=== PATIENT | female | born 1940 | race Caucasian/White ===

== ENCOUNTER 2023-07-02 13:09 | Emergency (ER) | payer OTHER ==
[~2023-07-02] VITALS: Ht 167.6 cm; Wt 59.2 kg
[2023-07-02 14:00] VITALS: BP 104/71; RESP 18; O2SAT 92
[2023-07-02 14:57] LABS: Basophils # (auto) 0 10 ^3/uL (0-0.2); Basophils % (auto) 0.2 % (0.0-2.0); Eosinophils # (auto) 0 10 ^3/uL (0-0.8); Lymphocytes # (auto) 0.9 10 ^3/uL (0.4-5.4); Mean Corpuscular Hemoglobin 36.7 pg (28.0-32.0); Mean Corpuscular Hgb Conc. 33.1 g/dL (32.0-36.0); Monocytes # (auto) 1.3 10 ^3/uL (0-1.3); Neutrophils # (auto) 10.6 10 ^3/uL (1.6-8.6)
[2023-07-02 14:58] LABS: Hematocrit 36.6 % (36.0-46.0); Hemoglobin 12.1 g/dL (12.2-16.2); Lymphocytes % (auto) 7.1 % (10.0-50.0); Monocytes % (auto) 10.4 % (0.0-12.0); Neutrophils % (auto) 82.3 % (37.0-80.0); Red Cell Distribution Width 14.9 % (11.8-14.3); White Blood Cell 12.9 10^3/uL (4.4-10.8)
[2023-07-02 15:14] LABS: Alanine Aminotransferase 25 U/L (7-40); Alkaline Phosphatase 210 U/L (46-116); Anion Gap 17 (5-15); Aspartate Aminotransferase 41 U/L (13-40); BUN/Creatinine Ratio 23.3 (10.0-20.0); Bilirubin, Total 0.9 mg/dL (0.2-1.0); Blood Urea Nitrogen 51 mg/dL (9-23); Calcium 8.7 mg/dL (8.7-10.4); Carbon Dioxide 16 mmol/L (20-30); Chloride 99 mmol/L (98-107); Glucose 135 mg/dL (74-106); Potassium 3.2 mmol/L (3.5-5.1); Sodium 132 mmol/L (136-145); Total Protein 7.3 g/dL (5.7-8.2)
[2023-07-02 18:58] VITALS: PULSE 114
[2023-07-02] MEDS ORDERED: POTASSIUM CHL 20MEQ/100ML 100 ML IV ONE (21:00)
== END 2023-07-02 22:15 | disposition left against medical advice (07) ==
LOC: ER 13:09
DX: E87.6 Hypokalemia (principal); R53.1 Weakness; D72.829 Elevated white blood cell count, unspecified; E87.20 Acidosis, unspecified; R07.89 Other chest pain; I10 Essential (primary) hypertension; E78.5 Hyperlipidemia, unspecified; Z90.710 Acquired absence of both cervix and uterus
CPT/HCPCS: 36415; 71045; 80053; 82962; 83880; 84484; 85025; 93005

== ENCOUNTER 2023-07-18 08:18 | Emergency (ER) | payer OTHER ==
[~2023-07-18] VITALS: Ht 167.6 cm; Wt 58.2 kg
[~2023-07-18 08:18] MED LIST: HYDR25CA PO
[2023-07-18 09:02] VITALS: BP 151/62; PULSE 86; RESP 18; TEMP 98.6; O2SAT 96
[2023-07-18] MEDS ORDERED: LORA-1121 PO (09:08)
== END 2023-07-18 09:14 | disposition home or self-care (01) ==
LOC: ER 08:18
DX: F41.1 Generalized anxiety disorder (principal); Z90.710 Acquired absence of both cervix and uterus

== ENCOUNTER 2023-07-24 09:30 | Emergency (ER) | payer OTHER ==
[~2023-07-24] VITALS: Ht 167.6 cm; Wt 61.0 kg
[~2023-07-24 09:30] MED LIST changes: +LORA-1121 PO
[2023-07-24 10:43] LABS: Urine Epithelial Cast None Seen /hpf (<5)
[2023-07-24 11:13] LABS: Basophils # (auto) 0 10 ^3/uL (0-0.2); Eosinophils # (auto) 0.1 10 ^3/uL (0-0.8); Hemoglobin 10.9 g/dL (12.2-16.2); Lymphocytes # (auto) 0.5 10 ^3/uL (0.4-5.4); Mean Corpuscular Volume 107.5 fL (80.0-100.0); Monocytes # (auto) 0.2 10 ^3/uL (0-1.3)
[2023-07-24 11:16] LABS: Urine Bacteria FEW /hpf (None Seen); Urine Blood Negative /uL (Negative); Urine Clarity Clear (Clear); Urine Color Colorless (Yellow); Urine Hyaline Cast FEW /lpf (0 - 2); Urine Protein, UAD Negative (Negative); Urine Specific Gravity 1.012 (1.001-1.035); Urine Urobilinogen Normal (Negative); Urine WBC 39 /hpf (0 - 5); Urine pH 5.5 (5.0-8.0)
[2023-07-24 11:16] LABS: Eosinophils % (auto) 1.8 % (0.0-7.0); Hematocrit 32.6 % (36.0-46.0); Lymphocytes % (auto) 16.8 % (10.0-50.0); Mean Corpuscular Hemoglobin 36.1 pg (28.0-32.0); Mean Corpuscular Hgb Conc. 33.5 g/dL (32.0-36.0); Neutrophils # (auto) 2.1 10 ^3/uL (1.6-8.6); Neutrophils % (auto) 72.4 % (37.0-80.0); Red Blood Cells 3.03 10^6/uL (4.0-5.20); Red Cell Distribution Width 14.4 % (11.8-14.3)
[2023-07-24 11:30] LABS: Alanine Aminotransferase 10 U/L (7-40); Albumin 3.9 g/dL (3.2-4.8); Alkaline Phosphatase 57 U/L (46-116); Anion Gap 6 (5-15); Aspartate Aminotransferase 15 U/L (13-40); BUN/Creatinine Ratio 12.8 (10.0-20.0); Blood Urea Nitrogen 15 mg/dL (9-23); Calcium 8.8 mg/dL (8.7-10.4); Carbon Dioxide 24 mmol/L (20-30); Chloride 111 mmol/L (98-107); Glucose 96 mg/dL (74-106); Magnesium 1.9 mg/dL (1.6-2.6); Sodium 141 mmol/L (136-145)
[2023-07-24 11:31] LABS: Bilirubin, Total 0.4 mg/dL (0.2-1.0); Total Protein 7.2 g/dL (5.7-8.2)
[2023-07-24 13:29] LABS: Base Excess -3.6 mmol/L (-2.0-2.0)
[2023-07-24 17:02] VITALS: BP 155/88; PULSE 105; RESP 18; TEMP 98; O2SAT 97
[2023-07-24] MEDS ORDERED: CEPH500C PO (17:07)
== END 2023-07-24 17:12 | disposition home or self-care (01) ==
LOC: ER 09:30
DX: N39.0 Urinary tract infection, site not specified (principal); R06.00 Dyspnea, unspecified; T50.B95A Adverse effect of other viral vaccines, initial encounter; R07.89 Other chest pain; I10 Essential (primary) hypertension; E78.5 Hyperlipidemia, unspecified; Z90.710 Acquired absence of both cervix and uterus; Y92.89 Other specified places as the place of occurrence of the external cause
CPT/HCPCS: 36415; 36600; 71045; 80053; 81001; 82805; 83605; 83735; 83880; 84484; 85025; 85379; 87040; 93005

== ENCOUNTER 2025-04-06 11:22 | Inpatient (IN) | payer OTHER ==
[~2025-04-06] VITALS: Ht 162.6 cm; Wt 67.3 kg
[~2025-04-06 11:22] MED LIST changes: +CEPH500C PO
[2025-04-06 11:38] VITALS: PULSE 120; RESP 37; O2SAT 95
--- NOTE | 2025-04-06 12:03 | ECG ---
[facility] Test Date: 2025-04-06 Test Time: 11:46:43 Pat Name: ELAINE EID Department: ER Room: 0222 Gender: F Global Clinical Leader: ESHA : 1940 Requested By: MANAS BAUMAN Order Number: [id number] Reading MD: Milton Groves Measurements Intervals Floyd Rate: 120 P: 34 NV: 150 QRS: -49 QRSD: 78 T: 77 QT: 305 QTc: 431 Interpretive Statements Sinus tachycardia Left anterior fascicular block Lateral infarct, age indeterminate Electronically Signed On 04-10-2025 20:28:57 PDT by Milton Groves Please click the below link to view image of tracing.
[2025-04-06] MEDS: SODIUM CHLORIDE 0.9% 1,000 ML IV ONE (12:13)
--- NOTE | 2025-04-06 12:23 | ED.PDOC ---
History of Present Illness HPI Comments 85 year old female with PMHx anxiety, cancer, HLD, HTN presents to the ED with a chief complaint of generalized weakness onset 1 week. states patient has been experiencing generalized weakness, poor appetite, nausea, vomiting, fevers, chills, sweats for the past week. Prior to symptoms, patient had B12 vaccine, since then symptoms began. Denies chest pain, shortness of breath, dizziness, headache, abdominal pain, dysuria, hematuria. no other symptoms or modifying factors present at this time. Chief Complaint: General Weakness Time Seen by MD: 12:00 Primary Care Provider: BECCA Saba Notes: Medications, Allergies Allergies: Coded Allergies: NO KNOWN ALLERGIES (Unverified , 07/02/23) Home Meds Active Scripts Cephalexin Monohydrate (Cephalexin) 500 Mg Cap, 1 CAP PO TID for 5 Days, #15 CAP Prov:MONE BARLOW DO 07/24/23 Lorazepam (ATIVAN TABLET) 0.5 Mg Tb, 1 TAB PO BID PRN, #14 TAB Prov:IMTIAZ BARNES 07/18/23 Hydroxyzine Pamoate (Vistaril) 25 Mg Cap, 1 CAP PO BID PRN, #30 CAP Prov:IMTIAZ BARNES 07/13/23 Information Source: Patient, Spouse Mode of Arrival: Ambulatory Severity: Moderate Timing: Weeks Duration: Since onset Prehospital treatment: None Past Medical History PAST MEDICAL HISTORY: Anxiety, Cancer, High Lipids, HTN Surgical History: Hysterectomy 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 Family History Family History: Reviewed,noncontributory to illness Social History Smoker: Non-Smoker Alcohol: Occasionally Drugs: Denies Drug Use Lives In: Home Constitutional: reports: chills, fever, sweats, weakness; denies: diaphoresis, fatigue, malaise, others EENTM: denies: blurred vision, double vision, ear bleeding, ear discharge, ear drainage, ear pain, ear ringing, eye pain, eye redness, hearing loss, mouth pain, mouth swelling, nasal discharge, nose bleeding, nose congestion, nose pain, photophobia, tearing, throat pain, throat swelling, voice changes, others Respiratory: denies: cough, hemoptysis, orthopnea, SOB at rest, shortness of breath, SOB with excertion, stridor, wheezing, others Cardiovascular: denies: chest pain, dizzy spells, diaphoresis, Dyspnea on exertion, edema, irregular heart beat, left arm pain, lightheadedness, palpitations, PND, syncope, others Gastrointestinal: reports: nausea, poor appetite, vomiting; denies: abdomen distended, abdominal pain, blood streaked bowels, constipated, diarrhea, dysphagia, difficulty swallowing, hematemesis, melena, poor fluid intake, rectal bleeding, rectal pain, others Genitourinary: denies: abnormal vagina bleeding, burning, dyspareunia, dysuria, flank pain, frequency, hematuria, incontinence, pain, , vagina discharge, urgency, others Neurological: reports: weakness; denies: dizziness, fainting, headache, left sided numbness, left sided weakness, numbness, paresthesia, pre-existing deficit, right sided numbness, right sided weakness, seizure, speech problems, tingling, tremors, others Musculoskeletal: denies: back pain, gout, joint pain, joint swelling, muscle pain, muscle stiffness, neck pain, others Integumetry: denies: bruises, change in color, change in hair/nails, dryness, laceration, lesions, lumps, rash, wounds, others Allergic/Immunocompromised: denies: Difficulty Healing, Frequent Infections, Hives, Itching, others Hematologic/Lymphatic: denies: anemia, blood clots, easy bleeding, easy bruising, swollen glands, others Endocrine: denies: excessive hunger, excessive sweating, excessive thirst, excessive urination, flushing, intolerance to cold, intolerance to heat, unexplained weight gain, unexplained weight loss, others Psychiatric: denies: anxiety, bipolar disorder, depression, hopeless, panic disorder, schizophrenia, sleepless, suicidal, others All Other Systems: Reviewed and Negative Physical Exam General Appearance: Normal HEENT: Normal ENT Inspection, Pharynx Normal, TMs Normal Neck: Full Range of Motion, Non-Tender, Normal, Normal Inspection Respiratory: Chest Non-Tender, Lungs Clear, No Accessory Muscle Use, No Respiratory Distress, Normal Breath Sounds Cardiovascular: Tachycardia Breast Exam: Deferred Gastrointestinal: No Organomegaly, Non Tender, No Pulsatile Mass, Normal Bowel Sounds, Soft Genitalia: Deferred Pelvic: Deferred Rectal: Deferred Extremities: No calf tenderness, Normal capillary refill, Normal inspection, Normal range of motion, Non-tender, No pedal edema Musculoskeletal : Apperance: Normal Neurologic: Alert, hr business partner II-XII nml as Tested, No Motor Deficits, Normal Affect, Normal Mood, No Sensory Deficits Cerebellar Function: Normal Reflexes: Normal Skin: Dry, Normal Color, Warm Lymphatic: No Adenopathy Was a procedure done? Was a procedure done?: No EKG EKG : Pulse Rate (adult): 120 Cardiac Rhythm: ST Differential Dx Considerations may include: ACS, CVA, viral syndrome, electrolyte abnormality, heart failure X-Ray, Labs, Meds, VS Vital Signs Date Time Temp Pulse Resp B/P (MAP) Pulse Ox O2 Delivery O2 Flow Rate FiO2 04/06/25 17:00 98.5 87 29 123/65 (84) 99 98.5 04/06/25 15:00 99 27 125/85 (98) 98 04/06/25 13:00 97 25 146/71 (96) 100 04/06/25 12:23 120 04/06/25 11:46 120 04/06/25 11:38 98.1 120 37 132/73 (92) 95 98.1 04/06/25 11:38 120 37 95 Nasal Cannula* 2 28 04/06/25 11:25 98.2 127 18 123/84 95 98.2 Lab Test 04/06/25 14:48 04/06/25 13:10 04/06/25 12:10 04/06/25 12:04 Range/Units Troponin I High Sensitivity 17 15 13 </=34 ng/L White Blood Count 6.4 4.4-10.8 10^3/uL Red Blood Count 3.42 L 4.0-5.20 10^6/uL Hemoglobin 12.5 12.2-16.2 g/dL Hematocrit 36.6 36.0-46.0 % Mean Corpuscular Volume 106.9 H 80.0-100.0 fL Mean Corpuscular Hemoglobin 36.4 H 28.0-32.0 pg Mean Corpuscular Hemoglobin Concent 34.1 32.0-36.0 g/dL Red Cell Distribution Width 15.2 H 11.8-14.3 % Platelet Count 150 140-450 10^3/uL Mean Platelet Volume 9.0 6.9-10.8 fL Neutrophils (%) (Auto) 88.4 H 37.0-80.0 % Lymphocytes (%) (Auto) 5.6 L 10.0-50.0 % Monocytes (%) (Auto) 5.7 0.0-12.0 % Eosinophils (%) (Auto) 0.0 0.0-7.0 % Basophils (%) (Auto) 0.3 0.0-2.0 % Neutrophils # (Auto) 5.6 1.6-8.6 10 ^3/uL Lymphocytes # (Auto) 0.4 0.4-5.4 10 ^3/uL Monocytes # (Auto) 0.4 0-1.3 10 ^3/uL Eosinophils # (Auto) 0 0-0.8 10 ^3/uL Basophils # (Auto) 0 0-0.2 10 ^3/uL Nucleated Red Blood Cells 0.0 % Sodium Level 135 L 136-145 mmol/L Potassium Level 4.3 3.5-5.1 mmol/L Chloride Level 102 98-107 mmol/L Carbon Dioxide Level 19 L 20-31 mmol/L Anion Gap 14 5-15 Blood Urea Nitrogen 44 H 9-23 mg/dL Creatinine 1.60 H 0.550-1.02 mg/dL Glomerular Filtration Rate Calc 32 >90 mL/min BUN/Creatinine Ratio 27.5 H 10.0-20.0 Serum Glucose 94 74-106 mg/dL Lactic Acid Level 1.3 0.4-2.0 mmol/L Calcium Level 8.1 L 8.7-10.4 mg/dL Urine Color Yellow Yellow Urine Clarity Clear Clear Urine pH 5.5 5.0-9.0 Urine Specific [place] 1.018 1.001-1.035 Urine Protein 1+ H Negative Urine Ketones 1+ H Negative Urine Blood Negative Negative /uL Urine Nitrite Negative Negative Urine Bilirubin Negative Negative Urine Urobilinogen Normal Negative mg/dL Urine Leukocyte Esterase Negative Negative /uL Urine RBC <1 0 - 4 /hpf Urine Microscopic WBC 1 0-5 /HPF Urine Squamous Epithelial Cells Few <5 /hpf Urine Bacteria None seen None Seen /hpf Urine Yeast (Budding) Occasional None Seen /hpf Urine Glucose Normal Normal mg/dL Current Medications Medications (Trade) Dose Ordered Sig/Tiffany Route Start Time Stop Time Status Last Admin Sodium Chloride 1,000 ml @ 1,000 mls/hr Q1H ONCE IV 04/06/25 12:15 04/06/25 13:14 DC 04/06/25 12:13 Cefepime HCl 50 ml @ 50 mls/hr ONCE ONCE IV 04/06/25 12:30 04/06/25 13:29 DC 04/06/25 12:[address] [address] Ph: [phone] DIAGNOSTIC IMAGING Diagnostic Imaging Report : [id number] Signed PATIENT: ELAINE EIDCCT: [id number] UNIT: [id number] : 1940 LOC: ER ROOM / BED: / AGE / SEX: 85 / F ADM STATUS: REG ER SERVICE 1201 ORDERING PHYSICIAN: MANAS BAUMAN MD PROCEDURE(s): CXRP - CHEST PORTABLE REASON: sob ORDER NUMBER(s): [id number], ACCESSION NUMBER(s): [id number] CHEST RADIOGRAPH Indication: sob Technique: Single frontal view of the chest was obtained COMPARISON: XR RIBS RIGHT W/ 1V CHEST on DOS: 02/22/25, CT CHEST WO on DOS: 10/04/23, XY CHEST PORTABLE on DOS: 07/24/23, XY CHEST PORTABLE on DOS: 07/02/23 FINDINGS: Lines and Tubes: None Lungs: Left basilar subsegmental atelectasis. Pleura: No effusion. No pneumothorax. Cardiomediastinal contours: Unremarkable Bones: Unremarkable IMPRESSION: Left basilar subsegmental atelectasis. ATED BY: CARLOS BATES MD DICTATED DATE/TIME: 04/06/251245 SIGNED BY: CARLOS BATES MD SIGNED DATE/TIME: 04/06/251245 CC: Time of 1ST Reevaluation: 12:30 Reevaluation 1ST: Unchanged Patient Education/Counseling: Diagnosis, Treatment, Prognosis Family Education/Counseling: Diagnosis, Treatment, Prognosis SEPSIS Sepsis Screen Date sepsis recognized/suspect: Apr 06, 2025 Time Sepsis recognized/suspect: 1125 Recent Procedure: No On Antibiotic Therapy: No Respiratory Rate >20: Yes Heart Rate >90: Yes Temp<36 C (96.8 F) or >38.3 C: No SBP <90 or MAP <65 mmHG: No New Acute Mental Status Change: No Is the patient on CPAP, BIPAP,: No Physician Orders Chest Portable (04/06/25 12:01) Blood Culture (04/06/25 12:01) Electrocardigram (04/06/25 13:01) Electrocardigram (04/06/25 15:01) Vital Signs Date Time Temp Pulse Resp B/P (MAP) Pulse Ox O2 Delivery O2 Flow Rate FiO2 04/06/25 17:00 98.5 87 29 123/65 (84) 99 98.5 04/06/25 15:00 99 27 125/85 (98) 98 04/06/25 13:00 97 25 146/71 (96) 100 04/06/25 12:23 120 04/06/25 11:46 120 04/06/25 11:38 98.1 120 37 132/73 (92) 95 98.1 04/06/25 11:38 120 37 95 Nasal Cannula* 2 28 04/06/25 11:25 98.2 127 18 123/84 95 98.2 Laboratory Tests Test 04/06/25 12:10 Lactic Acid Level 1.3 mmol/L (0.4-2.0) White Blood Count 6.4 10^3/uL (4.4-10.8) Medications Medications Dose Ordered Sig/Tiffany Route Start Time Stop Time Status Last Admin Dose Admin Cefepime HCl 50 ml @ 50 mls/hr ONCE ONCE IV 04/06/25 12:30 04/06/25 13:29 DC 04/06/25 12:33 Sodium Chloride 1,000 ml @ 1,000 mls/hr Q1H ONCE IV 04/06/25 12:15 04/06/25 13:14 DC 04/06/25 12:13 Departure 1 Departure Time of Disposition: 18:28 (Patient with a worsening shortness of breath and generalized weakness. We will admit patient for further workup and expert consultation) Impression: Primary Impression: Suspected congestive heart failure Additional Impressions: Acute dyspnea Generalized weakness Disposition: ADMITTED INPATIENT Admit to: Tele Condition: Guarded Critical Care Note Critical Care Time?: No Stability Stability form required: No I personally scribed for MANAS BAUMAN MD ([email or web address]) on 04/06/25 at 12:23. Electronically submitted by Magaly Santa ([email or web address]). I personally scribed for MANAS BAUMAN MD ([email or web address]) on 04/06/25 at 13:18. Electronically submitted by Magaly Santa ([email or web address]). MANAS BAUMAN MD Apr 06, 2025 12:23
[2025-04-06] MEDS ORDERED: CEFEPIME 1GM/50ML 50 ML IV ONE (12:30)
[2025-04-06] MEDS: CEFEPIME 2GM/50ML NS 50 ML IV ONE (12:33)
[2025-04-06 12:48] LABS: Hematocrit 36.6 % (36.0-46.0)
--- NOTE | 2025-04-06 12:48 | DVH ---
CHEST RADIOGRAPH Indication: sob Technique: Single frontal view of the chest was obtained COMPARISON: XR RIBS RIGHT W/ 1V CHEST on DOS: 02/22/25, CT CHEST WO on DOS: 10/04/23, XY CHEST PORTABLE on DOS: 07/24/23, XY CHEST PORTABLE on DOS: 07/02/23 FINDINGS: Lines and Tubes: None Lungs: Left basilar subsegmental atelectasis. Pleura: No effusion. No pneumothorax. Cardiomediastinal contours: Unremarkable Bones: Unremarkable IMPRESSION: Left basilar subsegmental atelectasis.
[2025-04-06 12:50] LABS: Hemoglobin 12.5 g/dL (12.2-16.2); Mean Corpuscular Hemoglobin 36.4 pg (28.0-32.0); Mean Corpuscular Volume 106.9 fL (80.0-100.0); Nucleated Red Blood Cells % 0.0 %
[2025-04-06 12:55] LABS: Chloride 102 mmol/L (98-107); Potassium 4.3 mmol/L (3.5-5.1)
[2025-04-06 12:56] LABS: Calcium 8.1 mg/dL (8.7-10.4); Carbon Dioxide 19 mmol/L (20-31)
[2025-04-06 12:57] LABS: Anion Gap 14 (5-15); Sodium 135 mmol/L (136-145)
[2025-04-06 13:01] LABS: BUN/Creatinine Ratio 27.5 (10.0-20.0); Glucose 94 mg/dL (74-106)
[2025-04-06 13:02] LABS: Blood Urea Nitrogen 44 mg/dL (9-23)
[2025-04-06 15:54] LABS: Urine Budding Yeast OCCASIONAL /hpf (None Seen); Urine Protein, UAD 1+ (Negative)
[2025-04-06 19:28] VITALS: PULSE 78; RESP 20; O2SAT 98
[2025-04-06] MEDS ORDERED: ACETAMINOPHEN 325 MG TAB PO PRN (19:30)
[2025-04-06] MEDS ORDERED: ONDANSETRON HCL 4 MG/2 ML VIAL IV PRN (19:30)
[2025-04-06] MEDS ORDERED: ALBUTEROL SULF 2.5 MG/0.5ML(0.5%) NEB SOLN NEB PRN (19:30)
[2025-04-06 19:36] VITALS: BP_DIAS 80; PULSE 78; RESP 20; TEMP 98.1; O2SAT 97
[2025-04-06] MEDS: ATORVASTATIN 20 MG TAB PO SCH (20:20)
[2025-04-06 21:30] VITALS: BP 158/90; PULSE 90; RESP 16; TEMP 97.8; O2SAT 98
[2025-04-06 21:52] VITALS: PULSE 90; RESP 16; O2SAT 98
[2025-04-06] MEDS ORDERED: METO-289 PO (22:02)
[2025-04-06] MEDS ORDERED: PRAV20TA3 (22:03)
[2025-04-06] MEDS: TEMAZEPAM 15 MG CAP PO PRN (22:09)
[2025-04-07] VITALS (8 sets, daily range): BP systolic 122–145; BP diastolic 62–83; PULSE 83–101; RESP 16–18; TEMP 97.5–98.9; O2SAT 95–97
--- NOTE | 2025-04-07 03:30 | DVHHP2 ---
History of Present Illness Reason for Visit: Generalized weakness History of Present Illness 85-year-old female presents for evaluation of generalized weakness. Patient presents with a one-week history of worsening fatigue, poor appetite generalized weakness. Patient denies chest pain or shortness for breath. No abdominal pa in. No dysuria or hematuria. Past Medical History Hypertension, dyslipidemia, cancer Past Surgical History Hysterectomy Family History Noncontributory Smoke: No ALCOHOL: occassional Drugs: None Lives: with Family Review of Systems Review of Systems Review of systems are currently negative otherwise addressed in HPI. Allergies: Coded Allergies: NO KNOWN ALLERGIES (Unverified , 07/02/23) Medications Current Medications Medications Dose Ordered Sig/Tiffany Route Start Time Stop Time Status Last Admin Dose Admin Metoprolol Succinate 50 mg DAILY PO 04/07/25 10:00 Atorvastatin Calcium 20 mg HS PO 04/06/25 22:00 04/06/25 20:20 20 MG Allopurinol 100 mg DAILY PO 04/07/25 10:00 Albuterol 2.5 mg Q6HPRN PRN NEB 04/06/25 19:30 Temazepam 15 mg QHSP PRN PO 04/06/25 19:30 04/06/25 22:09 15 MG Ondansetron HCl 4 mg Q4HP PRN IV 04/06/25 19:30 Acetaminophen 650 mg Q6HP PRN PO 04/06/25 19:30 Exam Vital Signs Vital Signs Date Time Temp Pulse Resp B/P (MAP) Pulse Ox O2 Delivery O2 Flow Rate FiO2 04/07/25 00:53 97.6 87 16 145/80 (101) 96 97.6 04/06/25 21:52 Nasal Cannula* 2 28 Exam Gen: 85-year-old female in mild distress Skin: Warm, dry, normal color and texture, no rash. HEENT: Normocephalic atraumatic, mucous membranes moist and pink. Neck: Cervical and supraclavicular nodes normal without enlargement, trachea is midline, thyroid gland is normal without masses. Pulmonary: Clear to auscultation and percussion bilaterally. Cardiac: Regular rate and rhythm. No murmur Abdomen: Soft, nontender, nondistended, bowel sounds present all 4 quadrants, no guarding, no rigidity, no organomegaly. Extremities: No cyanosis, clubbing, no edema Neuro: Cranial nerves II through XII grossly intact, normal affect and speech, no focal motor deficits. Labs/Xrays ORDERING PHYSICIAN: MANAS BAUMAN MD PROCEDURE(s): CXRP - CHEST PORTABLE REASON: sob ORDER NUMBER(s): [id number], ACCESSION NUMBER(s): [id number] CHEST RADIOGRAPH Indication: sob Technique: Single frontal view of the chest was obtained COMPARISON: XR RIBS RIGHT W/ 1V CHEST on DOS: 02/22/25, CT CHEST WO on DOS: 10/04/23, XY CHEST PORTABLE on DOS: 07/24/23, XY CHEST PORTABLE on DOS: 07/02/23 FINDINGS: Lines and Tubes: None Lungs: Left basilar subsegmental atelectasis. Pleura: No effusion. No pneumothorax. Cardiomediastinal contours: Unremarkable Bones: Unremarkable IMPRESSION: Left basilar subsegmental atelectasis. Labs Test 04/06/25 14:48 04/06/25 12:10 04/06/25 12:04 Range/Units Troponin I High Sensitivity 17 </=34 ng/L Thyroid Stimulating Hormone (TSH) 1.79 0.55-4.78 uIU/mL White Blood Count 6.4 4.4-10.8 10^3/uL Red Blood Count 3.42 L 4.0-5.20 10^6/uL Hemoglobin 12.5 12.2-16.2 g/dL Hematocrit 36.6 36.0-46.0 % Mean Corpuscular Volume 106.9 H 80.0-100.0 fL Mean Corpuscular Hemoglobin 36.4 H 28.0-32.0 pg Mean Corpuscular Hemoglobin Concent 34.1 32.0-36.0 g/dL Red Cell Distribution Width 15.2 H 11.8-14.3 % Platelet Count 150 140-450 10^3/uL Mean Platelet Volume 9.0 6.9-10.8 fL Neutrophils (%) (Auto) 88.4 H 37.0-80.0 % Lymphocytes (%) (Auto) 5.6 L 10.0-50.0 % Monocytes (%) (Auto) 5.7 0.0-12.0 % Eosinophils (%) (Auto) 0.0 0.0-7.0 % Basophils (%) (Auto) 0.3 0.0-2.0 % Neutrophils # (Auto) 5.6 1.6-8.6 10 ^3/uL Lymphocytes # (Auto) 0.4 0.4-5.4 10 ^3/uL Monocytes # (Auto) 0.4 0-1.3 10 ^3/uL Eosinophils # (Auto) 0 0-0.8 10 ^3/uL Basophils # (Auto) 0 0-0.2 10 ^3/uL Nucleated Red Blood Cells 0.0 % Sodium Level 135 L 136-145 mmol/L Potassium Level 4.3 3.5-5.1 mmol/L Chloride Level 102 98-107 mmol/L Carbon Dioxide Level 19 L 20-31 mmol/L Anion Gap 14 5-15 Blood Urea Nitrogen 44 H 9-23 mg/dL Creatinine 1.60 H 0.550-1.02 mg/dL Glomerular Filtration Rate Calc 32 >90 mL/min BUN/Creatinine Ratio 27.5 H 10.0-20.0 Serum Glucose 94 74-106 mg/dL Lactic Acid Level 1.3 0.4-2.0 mmol/L Calcium Level 8.1 L 8.7-10.4 mg/dL B-Type Natriuretic Peptide 56.57 0-100 pg/mL Urine Color Yellow Yellow Urine Clarity Clear Clear Urine pH 5.5 5.0-9.0 Urine Specific [place] 1.018 1.001-1.035 Urine Protein 1+ H Negative Urine Ketones 1+ H Negative Urine Blood Negative Negative /uL Urine Nitrite Negative Negative Urine Bilirubin Negative Negative Urine Urobilinogen Normal Negative mg/dL Urine Leukocyte Esterase Negative Negative /uL Urine RBC <1 0 - 4 /hpf Urine Microscopic WBC 1 0-5 /HPF Urine Squamous Epithelial Cells Few <5 /hpf Urine Bacteria None seen None Seen /hpf Urine Yeast (Budding) Occasional None Seen /hpf Urine Glucose Normal Normal mg/dL SEPSIS Sepsis Screen Date sepsis recognized/suspect: Apr 06, 2025 Time Sepsis recognized/suspect: 1932 Recent Procedure: No On Antibiotic Therapy: No Respiratory Rate >20: No Heart Rate >90: No Temp<36 C (96.8 F) or >38.3 C: No SBP <90 or MAP <65 mmHG: No New Acute Mental Status Change: No Is the patient on CPAP, BIPAP,: No Physician Orders Admit (04/06/25 19:25) Basic Metabolic Panel (04/07/25 04:00) Metoprolol Xl Succinate (Toprol Xl) (04/07/25 10:00) Atorvastatin (Lipitor) (04/06/25 22:00) Allopurinol Tablet (Zyloprim Tablet) (04/07/25 10:00) Albuterol Medneb (Ventolin Medneb) (04/06/25 19:30) Temazepam (Restoril) (04/06/25 19:30) Ondansetron Hcl (Zofran) (04/06/25 19:30) Cardiac Diet-2gna,Lofat,Lochol (04/07/25 Breakfast) Condition: Stable (04/06/25 19:25) Acetaminophen Tablet (Tylenol Tablet) (04/06/25 19:30) Bedrest With Bathroom Privileg (04/06/25 19:25) Vital Signs Date Time Temp Pulse Resp B/P (MAP) Pulse Ox O2 Delivery O2 Flow Rate FiO2 04/07/25 00:53 97.6 87 16 145/80 (101) 96 97.6 04/06/25 21:52 90 16 98 Nasal Cannula* 2 28 04/06/25 21:30 97.8 90 16 158/90 (112) 98 97.8 04/06/25 19:36 98.1 78 20 /80 97 2.0 28 98.1 04/06/25 19:28 78 20 98 Nasal Cannula* 2 28 04/06/25 19:28 98.1 78 20 142/80 (100) 97 98.1 Medications Medications Dose Ordered Sig/Tiffany Route Start Time Stop Time Status Last Admin Dose Admin Atorvastatin Calcium 20 mg HS PO 04/06/25 22:00 04/06/25 20:20 20 MG Temazepam 15 mg QHSP PRN PO 04/06/25 19:30 04/06/25 22:09 15 MG Assessment/Plan Assessment/Plan Assessment Generalized weakness Chronic kidney disease Hypertension Plan Admit the patient to [facility] to the hospitalist Maintenance IV fluids Resume home medications Continue treatment per orders. Plan discussed with: Patient My Orders Orders - JESSICA LEUNG Procedure Category Date Status Time Admit ADMIT 04/06/25 Transmitted 19:25 Basic Metabolic Panel LAB 04/07/25 Logged 04:00 Metoprolol Xl PHA 04/07/25 In Process Succinate (Toprol Xl) 10:00 Atorvastatin (Lipitor) PHA 04/06/25 In Process 22:00 Allopurinol Tablet PHA 04/07/25 In Process (Zyloprim Tablet) 10:00 Albuterol Medneb PHA 04/06/25 In Process (Ventolin Medneb) 19:30 Temazepam (Restoril) PHA 04/06/25 In Process 19:30 Ondansetron Hcl PHA 04/06/25 In Process (Zofran) 19:30 Cardiac DIET 04/07/25 Transmitted Diet-2gna,Lofat,Lochol Breakfast Condition: Stable VANI 04/06/25 In Process 19:25 Acetaminophen Tablet PHA 04/06/25 In Process (Tylenol Tablet) 19:30 Bedrest With Bathroom VANI 04/06/25 In Process Privileg 19:25 Date of Service: Apr 06, 2025 Billing Provider: JESSICA LEUNG Common Visit Codes: [id number] INP/OBS CARE (MOD) JESSICA LEUNG Apr 07, 2025 03:30
[2025-04-07 06:59] LABS: Potassium 4.0 mmol/L (3.5-5.1); Sodium 138 mmol/L (136-145)
[2025-04-07 07:00] LABS: Anion Gap 11 (5-15)
[2025-04-07 07:05] LABS: BUN/Creatinine Ratio 23.0 (10.0-20.0); Glucose 85 mg/dL (74-106)
[2025-04-07 07:06] LABS: Blood Urea Nitrogen 26 mg/dL (9-23); Calcium 8.0 mg/dL (8.7-10.4); Carbon Dioxide 19 mmol/L (20-31); Chloride 108 mmol/L (98-107)
[2025-04-07] MEDS: ALLOPURINOL 100 MG TAB PO SCH (10:54)
[2025-04-07] MEDS: METOPROLOL SUCCINATE XL 50 MG TAB PO SCH (10:54)
--- NOTE | 2025-04-07 14:28 | DVHPN2 ---
Subjective Patient continues to report having generalized weakness Reviewed: Care Plan, H&P, Labs, Medications Changes from previous H/P or p: No Changes General: Per HPI Objective Vitals Vital Signs Date Time Temp Pulse Resp B/P (MAP) Pulse Ox O2 Delivery O2 Flow Rate FiO2 04/07/25 10:54 88 135/83 04/07/25 09:00 98.5 16 96 98.5 04/07/25 08:00 Room Air* 0 21 Intake/Output Intake and Output 04/07/25 07:00 Intake Total 1550 ml Output Total 3 ml Balance 1547 ml Intake Oral 500 ml IV Total 1050 ml Output Urine Total 3 ml # Voids 1 General Appearance: Alert, Oriented X3, Cooperative, mild distress HEENT: Atraumatic, PERRLA Cardiovascular: Normal S1, Normal S2 Abdomen: Normal bowel sounds, Soft, No tenderness, No hepatospenomegaly, No masses Musculoskeletal: Normal sensory function, Normal motor function Neuro: Normal gait, Normal speech Skin: Dry, Intact Psych/Mental Status: Mental status NL, Mood NL Medications Current Medications Medications Dose Ordered Sig/Tiffany Route Start Time Stop Time Status Last Admin Dose Admin Metoprolol Succinate 50 mg DAILY PO 04/07/25 10:00 04/07/25 10:54 50 MG Atorvastatin Calcium 20 mg HS PO 04/06/25 22:00 04/06/25 20:20 20 MG Allopurinol 100 mg DAILY PO 04/07/25 10:00 04/07/25 10:54 100 MG Albuterol 2.5 mg Q6HPRN PRN NEB 04/06/25 19:30 Temazepam 15 mg QHSP PRN PO 04/06/25 19:30 04/06/25 22:09 15 MG Ondansetron HCl 4 mg Q4HP PRN IV 04/06/25 19:30 Acetaminophen 650 mg Q6HP PRN PO 04/06/25 19:30 Laboratory Results Laboratory Tests 04/06/25 12:10 04/07/25 04:06 Chemistry Test 04/07/25 04:06 Calcium Level 8.0 mg/dL (8.7-10.4) L Cardiac Markers Test 04/07/25 04:06 B-Type Natriuretic Peptide 161.14 pg/mL (0-100) HgA1c, TSH Test 04/06/25 14:48 04/07/25 04:06 Thyroid Stimulating Hormone (TSH) 1.79 uIU/mL (0.55-4.78) 2.38 uIU/mL (0.55-4.78) Urinalysis Test 04/06/25 12:04 Urine Color Yellow (Yellow) Urine Clarity Clear (Clear) Urine pH 5.5 (5.0-9.0) Urine Specific [place] 1.018 (1.001-1.035) Urine Protein 1+ (Negative) H Urine Ketones 1+ (Negative) H Urine Blood Negative /uL (Negative) Urine Nitrite Negative (Negative) Urine Bilirubin Negative (Negative) Urine Urobilinogen Normal mg/dL (Negative) Urine Leukocyte Esterase Negative /uL (Negative) Urine RBC <1 /hpf (0 - 4) Urine Microscopic WBC 1 /HPF (0-5) Urine Squamous Epithelial Cells Few /hpf (<5) Urine Bacteria None seen /hpf (None Seen) Urine Yeast (Budding) Occasional /hpf (None Urine Glucose Normal mg/dL (Normal) Microbiology Microbiology Date/Time Source Procedure Growth Status 04/06/25 12:18 Blood Blood Culture - Preliminary NO GROWTH AFTER 24 HOURS OF INCUBATION. Resulted Labs and/or images reviewed: Labs reviewed by me, Image(s) reviewed by me Assessment/Plan Assessment/Plan Impression: -generalized weakness -rule out sepsis -history of breast cancer and uterine cancer -primary hypertension -probable dehydration Plan: -gentle IV hydration -check LDH, CA 125, ESR, CRP, CMP -continue empiric antibiotic therapy with Rocephin -continue antihypertensives -reassess for discharge in a.m. Total time spent with patient discussing and formulating plan of care: 35 minutes. This medical document was created using an electronic medical record system with [employer] dictation system. Although this document has been carefully reviewed, there may still be some phonetic and typographical errors. These areas are purely typographical due to imperfections of the software programs, and do not reflect any compromise in the patient's medical care. Plan discussed with: Patient, Other (RN) My Orders Orders - JULIA PONCE NETSUITE DEVELOPER Procedure Category Date Status Time Comprehensive LAB 04/08/25 Verified Metabolic Panel 04:00 Complete Blood Count LAB 04/08/25 Verified 04:00 Erythrocyte LAB 04/07/25 Transmitted Sedimentation Rate 14:24 C-Reactive Protein LAB 10/8/25 Transmitted 14:24 NS PHA 04/07/25 Transmitted 14:30 Ca 125 (Serial) LAB 04/07/25 Transmitted 14:24 Lactate Dehydrogenase LAB 04/07/25 Transmitted 14:24 Date of Service: Apr 07, 2025 Billing Provider: JULIA PONCE NP Common Visit Codes: [id number] INP/OBS CARE(HIGH) JULIA PONCE NP Apr 07, 2025 14:28
[2025-04-07] MEDS: SODIUM CHLORIDE 0.9% 1,000 ML IV ONE (15:12)
[2025-04-08 01:00] VITALS: BP 144/84; PULSE 82; RESP 18; TEMP 97.9; O2SAT 96
[2025-04-08 05:00] VITALS: BP 148/71; PULSE 81; RESP 19; TEMP 98; O2SAT 95
[2025-04-08 06:44] LABS: Hematocrit 35.0 % (36.0-46.0); Hemoglobin 11.8 g/dL (12.2-16.2); Mean Corpuscular Hemoglobin 36.5 pg (28.0-32.0); Mean Corpuscular Volume 108.0 fL (80.0-100.0); Nucleated Red Blood Cells % 0.0 %
[2025-04-08 07:05] LABS: Alanine Aminotransferase 35 U/L (7-40); Albumin 3.3 g/dL (3.2-4.8); Alkaline Phosphatase 342 U/L (46-116); Anion Gap 13 (5-15); BUN/Creatinine Ratio 15.6 (10.0-20.0); Bilirubin, Total 0.8 mg/dL (0.2-1.0); Blood Urea Nitrogen 15 mg/dL (9-23); Calcium 8.4 mg/dL (8.7-10.4); Carbon Dioxide 19 mmol/L (20-31); Chloride 109 mmol/L (98-107); Glucose 98 mg/dL (74-106); Potassium 3.6 mmol/L (3.5-5.1); Sodium 141 mmol/L (136-145); Total Protein 6.7 g/dL (5.7-8.2)
[2025-04-08 09:00] VITALS: BP 157/81; PULSE 77; RESP 16; TEMP 97.7; O2SAT 98
[2025-04-08 09:35] VITALS: O2SAT 98
[2025-04-08] MEDS: SODIUM BICARB 50mEq/50ml Vial 50 ML in SOD CHL 0.45% 1,000 ML IV ONE (11:26)
--- NOTE | 2025-04-08 11:59 | DVHPN2 ---
Subjective Patient states that she feels better today. Reviewed: Care Plan, H&P, Labs, Medications Changes from previous H/P or p: Changes General: Per HPI Objective Vitals Vital Signs Date Time Temp Pulse Resp B/P (MAP) Pulse Ox O2 Delivery O2 Flow Rate FiO2 04/08/25 10:47 77 157/81 04/08/25 09:35 98 Room Air 04/08/25 09:35 0 21 04/08/25 09:00 97.7 16 97.7 Intake/Output Intake and Output 04/08/25 07:00 Intake Total 975 ml Balance 975 ml Intake Oral 750 ml IV Total 225 ml # Voids 5 # Bowel Movements 3 General Appearance: Alert, Oriented X3, Cooperative, mild distress HEENT: Atraumatic, PERRLA Cardiovascular: Normal S1, Normal S2 Abdomen: Normal bowel sounds, Soft, No tenderness, No hepatospenomegaly, No masses Musculoskeletal: Normal sensory function, Normal motor function Neuro: Normal gait, Normal speech Skin: Dry, Intact Psych/Mental Status: Mental status NL, Mood NL Medications Current Medications Medications Dose Ordered Sig/Tiffany Route Start Time Stop Time Status Last Admin Dose Admin Metoprolol Succinate 50 mg DAILY PO 04/07/25 10:00 04/08/25 10:47 50 MG Atorvastatin Calcium 20 mg HS PO 04/06/25 22:00 04/07/25 21:11 20 MG Allopurinol 100 mg DAILY PO 04/07/25 10:00 04/07/25 10:54 100 MG Albuterol 2.5 mg Q6HPRN PRN NEB 04/06/25 19:30 Temazepam 15 mg QHSP PRN PO 04/06/25 19:30 04/07/25 21:11 15 MG Ondansetron HCl 4 mg Q4HP PRN IV 04/06/25 19:30 Acetaminophen 650 mg Q6HP PRN PO 04/06/25 19:30 Laboratory Results Laboratory Tests 04/08/25 05:38 Chemistry Test 04/08/25 05:38 Albumin 3.3 g/dL (3.2-4.8) Calcium Level 8.4 mg/dL (8.7-10.4) L Total Protein 6.7 g/dL (5.7-8.2) LFT Test 04/08/25 05:38 Alanine Aminotransferase (ALT) 35 U/L (7-40) Alkaline Phosphatase 342 U/L (46-116) H Aspartate Amino Transferase (AST) 61 U/L (13-40) H Total Bilirubin 0.8 mg/dL (0.2-1.0) Urinalysis Test 04/06/25 12:04 Urine Color Yellow (Yellow) Urine Clarity Clear (Clear) Urine pH 5.5 (5.0-9.0) Urine Specific [place] 1.018 (1.001-1.035) Urine Protein 1+ (Negative) H Urine Ketones 1+ (Negative) H Urine Blood Negative /uL (Negative) Urine Nitrite Negative (Negative) Urine Bilirubin Negative (Negative) Urine Urobilinogen Normal mg/dL (Negative) Urine Leukocyte Esterase Negative /uL (Negative) Urine RBC <1 /hpf (0 - 4) Urine Microscopic WBC 1 /HPF (0-5) Urine Squamous Epithelial Cells Few /hpf (<5) Urine Bacteria None seen /hpf (None Seen) Urine Yeast (Budding) Occasional /hpf (None Urine Glucose Normal mg/dL (Normal) Microbiology Microbiology Date/Time Source Procedure Growth Status 04/06/25 12:18 Blood Blood Culture - Preliminary NO GROWTH AFTER 24 HOURS OF INCUBATION. Resulted Labs and/or images reviewed: Labs reviewed by me, Image(s) reviewed by me Assessment/Plan Assessment/Plan Impression: -generalized weakness -rule out sepsis -history of breast cancer and uterine cancer -primary hypertension -probable dehydration Plan: -events: Patient subjectively feels better. CA 125 elevated. Alk-phos elevated. LDH elevated. ESR and CRP elevated. -sodium bicarbonate drip -CT scan of the abdomen and pelvis with IV contrast -continue empiric antibiotic therapy with Rocephin -continue antihypertensives Total time spent with patient discussing and formulating plan of care: 35 minutes. This medical document was created using an electronic medical record system with [employer] dictation system. Although this document has been carefully reviewed, there may still be some phonetic and typographical errors. These areas are purely typographical due to imperfections of the software programs, and do not reflect any compromise in the patient's medical care. Plan discussed with: Patient, Other (RN) My Orders Orders - [employer] Procedure Category Date Status Time Ct Ab Pel With Iv Con CT 04/08/25 Logged Only 08:39 Sodium Bicarb PHA 04/08/25 In Process 50meq/50ml Vial 08:45 Date of Service: Apr 08, 2025 Billing Provider: JULIA PONCE NP Common Visit Codes: [id number] INP/OBS CARE(HIGH) JULIA PONCE NP Apr 08, 2025 11:59
[2025-04-08 13:00] VITALS: BP 153/80; PULSE 82; RESP 18; TEMP 97.9; O2SAT 98
--- NOTE | 2025-04-08 14:36 | DVH ---
CLINICAL HISTORY: elevated ca 125, Hx of uterine cancer TECHNIQUE: CT of the abdomen and pelvis was performed with IV contrast. This exam was performed accor ding to our departmental dose optimization program. Up-to-date CT equipment and radiation dose reduct ion techniques are utilized as appropriate. CTDI 6.8 DLP 340 COMPARISON: None FINDINGS: Abdomen/Pelvis: The spleen, pancreas, adrenal glands, left kidney, and bladder are unremarkable. There is a right renal cyst. There is diffuse hepatic steatosis. There is a 2 mm gallbladder polyp versus stone. The uterus and ovaries are absent. There is no abnormal soft tissue thickening within the surgical b ed. The abdominal aorta is normal in course and caliber. There are [id number] atherosclerotic calci fications. There is no free intraperitoneal air. There is miniscule free fluid in the deep pelvis. There is no enlarged abdominal or pelvic lymph node. There is no bowel wall thickening or dilatation. Other: The imaged lower thorax demonstrates moderate left hemidiaphragm elevation with mild bilateral lower lung atelectasis. The right breast appears absent. There are miniscule bilateral pleural effusions. No acute osseous abnormality is evident. IMPRESSION: Hysterectomy with bilateral salpingo-oophorectomy. Right mastectomy. No CT evidence for recurrent or metastatic disease in the abdomen or pelvis. Diffuse hepatic steatosis. 2 mm gallbladder polyp versus stone.
[2025-04-08 17:00] VITALS: BP 157/78; PULSE 92; RESP 18; TEMP 98.2; O2SAT 94
[2025-04-08] MEDS: IOHEXOL 300 MG/ML 100ML BOTTLE IJ ONE (17:15)
[2025-04-09 10:07] LABS: Anti-Nuclear Antibody Direct Negative (Negative)
== END 2025-04-08 17:56 | disposition home or self-care (01) | DRG 641 ==
LOC: ER 11:22 → OVERFLOW 19:25 → CENTRAL 21:29
PROVIDERS: ADMIT Nurse Practitioner Acute Care; ATTEND Nurse Practitioner Acute Care
DX: E86.0 Dehydration (principal); N18.9 Chronic kidney disease, unspecified; I12.9 Hypertensive chronic kidney disease with stage 1 through stage 4 chronic kidney disease, or unspecified chronic kidney disease; E78.5 Hyperlipidemia, unspecified; F41.9 Anxiety disorder, unspecified; Z79.2 Long term (current) use of antibiotics; Z79.899 Other long term (current) drug therapy; Z90.710 Acquired absence of both cervix and uterus; Z85.42 Personal history of malignant neoplasm of other parts of uterus; Z85.3 Personal history of malignant neoplasm of breast
CPT/HCPCS: 36415; 71045; 74177; 80048; 80053; 81001; 83605; 83615; 83880; 84443; 84484; 85025; 85652; 86038; 86141; 86304; 86431; 87040; 93005; 96365; G0378; J0692; J2405